=== PATIENT | male | born 1970 | race Caucasian/White ===

== ENCOUNTER 2023-07-06 11:25 | Emergency (ER) | payer SELFPAY ==
[2023-07-06] MEDS ORDERED: Morphine 4 MG/ML Syringe IVPUSH ONE ×2 (11:41→12:53)
[2023-07-06] MEDS ORDERED: Naloxone 0.4 MG/ML SDV IVPUSH PRN (11:41)
[2023-07-06] MEDS ORDERED: Sodium Chloride 0.9% 10 ML Syringe FLUSH PRN (11:41)
[2023-07-06] MEDS ORDERED: Ondansetron 4 MG/2 ML SDV IVPUSH ONE (11:41)
[2023-07-06] MEDS ORDERED: Sodium Chloride 0.9% 2.5 ML Syringe FLUSH PRN (11:41)
[2023-07-06 11:52] LABS: BASOPHILS PERCENT AUTO 0.3 % (0.0-1.5); EOSINOPHILS ABSOLUTE AUTO 0.4 K/uL (0.0-0.7); EOSINOPHILS PERCENT AUTO 2.9 % (0.0-7.0); HEMATOCRIT 42.6 % (38.0-50.0); HEMOGLOBIN 15.5 g/dL (13.0-17.0); LYMPHOCYTES ABSOLUTE AUTO 6.9 K/uL (0.6-2.4); LYMPHOCYTES PERCENT AUTO 53.9 % (16.0-40.0); MEAN CORPUSCULAR HEMOGLOBIN 29.7 pg (27.0-32.0); MEAN CORPUSCULAR HGB CONC 36.4 g/dL (31.0-37.0); MEAN CORPUSCULAR VOLUME 81.6 fL (80.0-98.0); MONOCYTES ABSOLUTE AUTO 0.9 K/uL (0.0-0.8); MONOCYTES PERCENT AUTO 7.2 % (0.0-15.0); NEUTROPHILS ABSOLUTE AUTO 4.6 K/uL (1.4-5.7); NEUTROPHILS PERCENT AUTO 35.7 % (48.0-80.0); NRBC ABSOLUTE 0 K/uL; PLATELET COUNT,PLT 435 K/uL (150-400); RED BLOOD CELL COUNT 5.22 M/uL (4.50-5.90); WHITE BLOOD CELL COUNT,WBC 12.86 K/uL (4.0-11.0)
[2023-07-06 12:02] LABS: INR 1.02 (0.86-1.11)
[2023-07-06 12:16] LABS: A/G RATIO 0.9 (0.9-1.6); ALBUMIN 3.6 g/dL (3.4-5.0); BILIRUBIN TOTAL 0.5 mg/dL (0.2-1.0); C-REACTIVE PROTEIN 0.6 mg/dL (0.00-0.90); CALCIUM 8.6 mg/dL (8.5-10.1); CARBON DIOXIDE,CO2 22.6 mmol/L (21.0-32.0); EST CRCL DRUG DOSING (CG) 93.08 mL/min; POTASSIUM,K 3.7 mmol/L (3.5-5.1); PROTEIN TOTAL,TP 7.5 g/dL (6.4-8.2)
[2023-07-06] MEDS ORDERED: Ketorolac 30 MG/ML SDV IVPUSH ONE (12:53)
[2023-07-06] MEDS ORDERED: Acetaminophen/oxyCODONE 325-5 MG Tab PO ONE (13:57)
[2023-07-06] MEDS ORDERED: Acetaminophen/HYDROcodone 325-5 MG Tab PO ONE (13:58)
== END 2023-07-06 14:20 | disposition home or self-care (01) ==
LOC: MW.ED 11:25
DX: S57.82XA Crushing injury of left forearm, initial encounter (principal); S77.22XA Crushing injury of left hip with thigh, initial encounter; W23.0XXA Caught, crushed, jammed, or pinched between moving objects, initial encounter; Y92.89 Other specified places as the place of occurrence of the external cause; Y99.0 Civilian activity done for income or pay
CPT/HCPCS: 36415; 73080; 73090; 73110; 73502; 73552; 73562; 80053; 82550; 85025; 85610; 86140; 96374; 96375; 96376; 99283; A9270; J1885; J2270; J2405; J3490; 99284

== ENCOUNTER 2025-04-22 11:40 | Emergency (ER) | payer BC ==
[2025-04-22] MEDS ORDERED: Sodium Chloride 0.9% 2.5 ML Syringe FLUSH PRN (11:59)
[2025-04-22] MEDS ORDERED: Sodium Chloride 0.9% 10 ML Syringe FLUSH PRN (11:59)
[2025-04-22] MEDS: Sodium Chloride 0.9% 1,000 ML IV ONE (12:06)
[2025-04-22] MEDS: diphenhydrAMINE 50 MG/ML SDV IVPUSH ONE (12:07)
[2025-04-22] MEDS: Ketorolac 30 MG/ML SDV IVPUSH ONE (12:07)
[2025-04-22] MEDS: Prochlorperazine 10 MG/2 ML SDV IVPUSH ONE (12:14)
[2025-04-22 12:17] LABS: HEMATOCRIT 46.5 % (42.0-52.0); HEMOGLOBIN 16.8 g/dL (14.0-18.0); MEAN CORPUSCULAR HEMOGLOBIN 29.6 pg (28.0-32.0); MEAN CORPUSCULAR HGB CONC 36.1 g/dL (32.0-36.0); MEAN CORPUSCULAR VOLUME 81.9 fL (83.0-99.0); NRBC ABSOLUTE 0.02 K/uL (0.00-0.02); NRBC PERCENT 0.1 /100WBC (0.0-0.2); PLATELET COUNT,PLT 483 K/uL (150-400); RED BLOOD CELL COUNT 5.68 M/uL (4.52-5.90); WHITE BLOOD CELL COUNT,WBC 13.83 K/uL (3.9-11.3)
[2025-04-22 12:32] LABS: A/G RATIO 0.9 (0.9-1.6); ALBUMIN 3.7 g/dL (3.4-5.0); BILIRUBIN TOTAL 0.6 mg/dL (0.2-1.0); CALCIUM 9.1 mg/dL (8.5-10.1); CREATININE 1.1 mg/dL (0.8-1.3); EST CRCL DRUG DOSING (CG) 82.72 mL/min; MAGNESIUM 2.1 mg/dL (1.8-2.4); POTASSIUM,K 3.9 mmol/L (3.5-5.1); PROTEIN TOTAL,TP 7.9 g/dL (6.4-8.2)
[2025-04-22 12:41] LABS: EOSINOPHILS ABSOLUTE MAN 0.28 K/uL (0.00-0.45); EOSINOPHILS PERCENT MAN 2 % (0-6); LYMPHOCYTES ABSOLUTE MAN 5.53 K/uL (1.00-4.80); LYMPHOCYTES PERCENT MAN 40 % (24-44); MONOCYTES PERCENT MAN 13 % (0-8); SEG NEUTROPHILS ABSOLUTE MAN 6.22 K/uL (1.80-7.70); SEG NEUTROPHILS PERCENT MAN 45 % (41-71)
[2025-04-22 12:45] LABS: REACTIVE LYMPHOCYTES FEW
== END 2025-04-22 13:47 | disposition home or self-care (01) ==
LOC: MW.ED 11:40
DX: R51.9 Headache, unspecified (principal); F17.200 Nicotine dependence, unspecified, uncomplicated; Z75.3 Unavailability and inaccessibility of health-care facilities
CPT/HCPCS: 36415; 70450; 70450-26; 71045; 71045-26; 72125; 72125-26; 80053; 83690; 83735; 84484; 85025; 93010; 96361; 96374; 96375; 99284; 99285-25; J0780; J1100; J1200; J1885; J7030